=== PATIENT | female | born 1985 | race Two or more races ===

== ENCOUNTER 2021-04-16 09:45 | Emergency (ER) | payer SELFPAY ==
[2021-04-16 10:43] LABS: BASOPHIL 0.3 % (0-2); EOSINOPHIL 0 % (0-5); HCT 43.2 % (37.0-47.0); HGB 14.5 g/dl (12.5-16.0); LYMPHOCYTE 13.9 % (15-48); MCH 32.4 pg (25.0-31.0); MCHC 33.6 g/dL (32.0-36.0); MCV 96.6 fL (78.0-100.0); MONOCYTE 5.7 % (0-12); NEUTROPHIL 79.8 % (41-80); NRBC 0; PLT 116 K/uL (150-400); RBC 4.47 M/uL (4.20-5.40); RDW 12.3 % (11.5-14.0)
[2021-04-16 10:54] LABS: BUN/CREAT RATIO (CALC) 14.5 RATIO; CREATININE 0.76 mg/dL (0.51-0.95); POTASSIUM 3.7 mmol/L (3.5-5.1)
== END 2021-04-16 14:01 | disposition home or self-care (01) ==
LOC: FER 09:45
PROVIDERS: Emergency Medicine
DX: G40.909 Epilepsy, unspecified, not intractable, without status epilepticus (principal)
CPT/HCPCS: 36415; 70450; 80048; 85025; J7040